=== PATIENT | male | born 1965 | race Caucasian/White ===

== ENCOUNTER 2018-07-24 18:47 | Emergency (ER) | payer OTHER ==
[~2018-07-24 18:47] MED LIST: Iopamidol 370 76% 100 ML VIAL ONE
[2018-07-24 19:25] LABS: #Basophils 0.1 thou/uL (0.0-0.2); #Eosinphils 0.1 thou/uL (0.0-0.7); #Lymphocytes 1.7 thou/uL (1.20-3.40); #Monocytes 0.4 thou/uL (0.11-0.59); #Neutrophils 3.7 thou/uL (1.40-6.50); %Basophils 1.3 % (0.0-1.0); %Eosinophils 2.3 % (0.0-10.0); %Lymphocytes 28.7 % (21.0-51.0); %Monocytes 6.2 % (0.0-10.0); %Neutrophils 61.6 % (42.0-75.0); Hemoglobin 16.2 g/dL (14.0-18.0); Mean Corpuscular HGB CONC 35.3 g/dL (32.0-36.0); Mean Corpuscular Hemoglobin 31.4 pg (27.0-31.0); Mean Platelet Volume 7.6 fL (7.4-10.4); Platelet Count 210 thou/uL (130-400); RBC Distribution Width 11.3 % (11.5-14.5); Red Blood Cell (RBC) Count 5.16 mill/uL (4.70-6.10)
[2018-07-24 19:45] LABS: ALT (SGPT) 43 U/L (8-55); AST (SGOT) 21 U/L (5-34); Albumin 4.3 g/dL (3.5-5.0); Alkaline Phosphatase 72 U/L (40-150); Anion Gap 15 mmol/L (10-20); BUN (Urea Nitrogen) 9 mg/dL (8.4-25.7); Bilirubin, Total 0.6 mg/dL (0.2-1.2); Calc. Creatinine Clearance 0 mL/min (70-130); Calcium 8.9 mg/dL (7.8-10.44); Carbon Dioxide 22 mmol/L (22-29); Chloride 103 mmol/L (98-107); Estimated GFR-MDRD 78; Glucose 126 mg/dL (70-105); Lipase 21 U/L (8-78); Potassium 3.4 mmol/L (3.5-5.1); Protein, Total 7.3 g/dL (6.0-8.3); Sodium 137 mmol/L (136-145)
[2018-07-24 19:59] LABS: Bilirubin Negative (Negative); Blood, Urine Negative (Negative); Clarity CLEAR (Clear); Glucose, Urine (Dipstick) Negative (Negative); Leukocyte Negative (Negative); Nitrite Negative (Negative); Protein, Urine (Dipstick) Negative (Neg-Trace); Specific Gravity, Urine 1.001 (1.002-1.036); Urobilinogen 0.2 mg/dL (0.2-1.0); pH, Urine 5.5 (5.0-9.0)
--- NOTE | 2018-07-24 21:18 | CT ---
CT ABDOMEN AND PELVIS WITH IV CONTRAST: 07/24/2018 PROVIDED CLINICAL HISTORY: Right lower quadrant pain. FINDINGS: The visualized lung bases are free of significant opacity. The solid abdominal organs demonstrate an unremarkable CT appearance. There is no bowel dilatation, inflammatory fat stranding, free fluid, or free air apparent. The appe ndix appears normal. There is a small fat-containing umbilical hernia. There is a small fat-contain ing right inguinal hernia. The osseous structures demonstrate no concerning osteoblastic or osteolytic lesions. Degenerative ch anges are seen. IMPRESSION: No evidence for an acute process. POS: [facility]
== END 2018-07-24 22:26 | disposition home or self-care (01) ==
LOC: ERS 18:47
DX: K40.90 Unilateral inguinal hernia, without obstruction or gangrene, not specified as recurrent (principal); F17.220 Nicotine dependence, chewing tobacco, uncomplicated
CPT/HCPCS: 74177; 80053; 81003; 83690; 85025; 96360

== ENCOUNTER 2018-08-11 18:52 | Emergency (ER) | payer OTHER ==
[2018-08-11] MEDS ORDERED: Ketorolac Tromethamine 30 MG/ML VIAL ONE (19:18)
[2018-08-11 19:30] LABS: #Basophils 0.1 thou/uL (0.0-0.2); #Eosinphils 0.1 thou/uL (0.0-0.7); #Lymphocytes 1.7 thou/uL (1.20-3.40); #Monocytes 0.5 thou/uL (0.11-0.59); #Neutrophils 6.3 thou/uL (1.40-6.50); %Basophils 1.2 % (0.0-1.0); %Eosinophils 1.6 % (0.0-10.0); %Lymphocytes 19.7 % (21.0-51.0); %Neutrophils 71.6 % (42.0-75.0); Hemoglobin 17.1 g/dL (14.0-18.0); Mean Corpuscular HGB CONC 34.5 g/dL (32.0-36.0); Mean Corpuscular Hemoglobin 30.9 pg (27.0-31.0); Mean Corpuscular Volume 89.8 fL (78.0-98.0); Mean Platelet Volume 9.6 fL (7.4-10.4); Platelet Count 180 thou/uL (130-400); RBC Distribution Width 11.5 % (11.5-14.5); Red Blood Cell (RBC) Count 5.51 mill/uL (4.70-6.10); White Blood Cell (WBC) Count 8.8 thou/uL (4.8-10.8)
[2018-08-11 19:36] LABS: Bilirubin Negative (Negative); Blood, Urine Negative (Negative); Clarity Clear (Clear); Glucose, Urine (Dipstick) Negative (Negative); Leukocyte Negative (Negative); Nitrite Negative (Negative); Protein, Urine (Dipstick) Negative (Neg-Trace); Urobilinogen 0.2 mg/dL (0.2-1.0)
[2018-08-11 19:48] LABS: ALT (SGPT) 50 U/L (8-55); AST (SGOT) 23 U/L (5-34); Albumin 4.3 g/dL (3.5-5.0); Alkaline Phosphatase 68 U/L (40-150); Anion Gap 15 mmol/L (10-20); BUN (Urea Nitrogen) 13 mg/dL (8.4-25.7); Bilirubin, Total 0.9 mg/dL (0.2-1.2); Calc. Creatinine Clearance 0 mL/min (70-130); Calcium 9.7 mg/dL (7.8-10.44); Carbon Dioxide 25 mmol/L (22-29); Chloride 104 mmol/L (98-107); Estimated GFR-MDRD 80; Globulin 2.8 g/dL (2.4-3.5); Glucose 117 mg/dL (70-105); Lipase 24 U/L (8-78); Protein, Total 7.1 g/dL (6.0-8.3); Sodium 140 mmol/L (136-145)
--- NOTE | 2018-08-11 21:27 | CT ---
CT ABDOMEN WITH CONTRAST CT PELVIS WITH CONTRAST: DATE: 08/11/18 at 9:13 p.m. HISTORY: 52-year-old male with diffuse acute abdominal pain. Nausea. COMPARISON: 07/24/18 TECHNIQUE: IV injection of iodinated contrast media: Isovue 370 Oral contrast media: Administered FINDINGS: Hepatic attenuation is diffusely low consistent with fatty liver. No biliary ductal dilation. No port al vein thrombosis. Pancreas, bilateral kidneys, abdominal aorta, adrenals, spleen, and urinary bladd er and appendix, are essentially normal. There is a new finding of focal region of mesenteric fat stranding (gaurav mesentery) located centrall y and slightly left paracentrally in the deep portion of the peritoneal cavity. It is located just adames perior to a loop of jejunum which it broadly abuts. This loop of small bowel does not contain oral co ntrast media (although there is oral contrast medial proximal and distal to it), and therefore it is difficult to evaluate its cardenas and lumen. The mesenteric fat stranding does not communicate with th e pancreas. There are multiple mildly enlarged mesenteric lymph nodes in that vicinity. No pneumoperi toneum or ascites. Lung bases are grossly clear. No colonic diverticulitis. There is no small bowel d ilation. IMPRESSION: 1. Focal new edema in the central/left paracentral deep mesentery, with adjacent mild mesenteric lymphadenitis. The source of this mesenteric edema is not certain. It could be arising from the jaden cent loop of jejunum which it abuts, but this is uncertain. 2. No organized abscess. 3. Hepatic steatosis. [facility]EE Fernandez POS: [facility]
== END 2018-08-11 22:19 | disposition home or self-care (01) ==
LOC: SCSER 18:52
DX: I88.0 Nonspecific mesenteric lymphadenitis (principal); K21.9 Gastro-esophageal reflux disease without esophagitis; F17.220 Nicotine dependence, chewing tobacco, uncomplicated
CPT/HCPCS: 74177; 80053; 81003; 83690; 85025; 96361; 96374; J1885